=== PATIENT | female | born 2005 | race Caucasian/White ===

== ENCOUNTER 2025-01-02 18:18 | Emergency (ER) | payer OTHER ==
[~2025-01-02] VITALS: Ht 172.7 cm; Wt 65.8 kg
== END 2025-01-02 20:25 | disposition home or self-care (01) ==
LOC: ED 18:18
DX: S82.401A Unspecified fracture of shaft of right fibula, initial encounter for closed fracture (principal); W10.8XXA Fall (on) (from) other stairs and steps, initial encounter; Y93.89 Activity, other specified; Y92.89 Other specified places as the place of occurrence of the external cause; Y99.8 Other external cause status